=== PATIENT | male | born 1930 | race Caucasian/White ===

== ENCOUNTER 2017-01-21 13:49 | Observation (INO) | payer MEDICARE, OTHER ==
[~2017-01-21] VITALS: Ht 182.9 cm; Wt 83.8 kg
[~2017-01-21 13:49] MED LIST: ALBU8.5H8; ASPI-515 PO; ATOR40TA78 PO; CARB1TAB PO; CARB1TAB44 PO; CITA40TA5 PO; CLOP75TA PO; DOCU50CA PO; DROX100C PO; ESZO2TAB22 PO; FLUT1DIS; FLUT1DIS5 IH; FOLI-17 PO; GUAI600T80 PO; LORA2TAB99 PO; MAGN400T7 PO; MIDO10TA PO; MULT-115 PO; NITR0.4T28 SL; OMEG500C PO; PANT40GR PO; PRAV80TA2 PO; PRED10TA PO; PRED20TA PO; PYRI60TA PO; RANO500T2 PO; ROSU40TA PO; THIA100T10 PO; TIOT18CA; VITAMIN B COMPLEX; WELLBUTRIN
[2017-01-21] MEDS ORDERED: BUDE10.2 INH (14:17)
[2017-01-21] MEDS ORDERED: SODIUM CHLORIDE 0.9% 1,000ML IVBOLUS ONE (14:30)
[2017-01-21] MEDS ORDERED: ONDANSETRON 2MG/ML, 2ML IVPush ONE (14:30)
[2017-01-21] MEDS ORDERED: SODIUM CHLORIDE FLUSH 10ML SYR IVF ONE (14:30)
[2017-01-21 14:39] LABS: HEMATOCRIT 41.5 % (39.2-51.8); HEMOGLOBIN 13.9 g/dL (13.7-18.0); WHITE BLOOD COUNT 7.3 x10^3/uL (3.4-10)
[2017-01-21 14:51] LABS: ASPARTATE AMINO TRANSFERASE 8 U/L (15-37); BLOOD UREA NITROGEN 13 mg/dL (7-18)
[2017-01-21] MEDS ORDERED: ONDANSETRON 2MG/ML, 2ML ONE (15:08)
[2017-01-21] MEDS ORDERED: HYDROmorphone 1 MG/ML, 1ML IM PRN (17:00)
[2017-01-21] MEDS ORDERED: HYDROmorphone 1 MG/ML, 1ML ONE (17:04)
[2017-01-21] MEDS ORDERED: HYDROmorphone 1 MG/ML, 1ML IVPush PRN (17:30)
[2017-01-21] MEDS ORDERED: POTASSIUM CHLORIDE 20 MEQ, MAGNESIUM SULFATE 2 GM, THIAMINE 100 MG, MVI ADULT 10 ML, FO... IV SCH (17:44)
[2017-01-21] MEDS ORDERED: PINK LADY ENEMA 1,000 ML PR ONE (18:00)
[2017-01-21] MEDS ORDERED: ONDANSETRON ODT 4 MG PO PRN (18:00)
[2017-01-21] MEDS ORDERED: NITROGLYCERIN 0.4 MG BOTTLE (25 TABS) SL SCH (18:00)
[2017-01-21] MEDS ORDERED: ONDANSETRON 2MG/ML, 2ML IVPush PRN (18:00)
[2017-01-21] MEDS ORDERED: DOCUSATE 100 MG CAPSULE PO PRN (18:00)
[2017-01-21] MEDS ORDERED: LABETALOL 5MG/ML, 20ML IVPush PRN (18:00)
[2017-01-21] MEDS ORDERED: ENOXAPARIN 40 MG/0.4 ML SQ SCH (18:00)
[2017-01-21] MEDS ORDERED: TRAZODONE 50MG TABLET PO PRN (18:00)
[2017-01-21] MEDS ORDERED: ACETAMINOPHEN 325 MG TABLET PO PRN (18:00)
[2017-01-21] MEDS ORDERED: hydrALAzine 20 MG/ML, 1ML IVPush PRN (18:00)
[2017-01-21] MEDS ORDERED: BISACODYL 10 MG SUPP PR PRN (18:00)
[2017-01-21] MEDS ORDERED: POLYETHYLENE GLYCOL 17 GM PACKET PO PRN (18:00)
[2017-01-21 18:37] VITALS: BP 119/65
[2017-01-21] MEDS ORDERED: POTASSIUM CHLORIDE 20 MEQ, MAGNESIUM SULFATE 2 GM, THIAMINE 100 MG, MVI ADULT 10 ML in ... IV SCH (19:00)
[2017-01-21] MEDS ORDERED: FOLIC ACID 1 MG TABLET PO SCH (19:00)
[2017-01-21] MEDS: CARBIDOPA/LEVODOPA CR 50 MG/200 MG TABLET PO SCH ×2 (19:49→23:20)
[2017-01-21] MEDS: MIDODRINE 5 MG TABLET PO SCH ×2 (19:49→21:00)
[2017-01-21] MEDS ORDERED: (Rosuvastatin Calcium** (Crestor**) 40 MG) PO SCH (21:00)
[2017-01-21] MEDS: FAMOTIDINE 20 MG TABLET PO SCH (21:55)
[2017-01-21] MEDS: LACTULOSE 10 GM/15 ML UDC PO SCH (21:55)
[2017-01-21] MEDS: RANOLAZINE 500 MG TAB.ER.12H PO SCH (21:55)
[2017-01-22 02:40] VITALS: BP 150/71
[2017-01-22 06:04] LABS: HEMATOCRIT 36.2 % (39.2-51.8); WHITE BLOOD COUNT 5.4 x10^3/uL (3.4-10)
[2017-01-22 06:06] LABS: BLOOD UREA NITROGEN 14 mg/dL (7-18)
[2017-01-22 07:52] VITALS: BP 116/70
[2017-01-22] MEDS ORDERED: (Budesonide/Formoterol Fumarate (Symbicort 160-4.5 Mcg Inhaler INH SCH (09:00)
[2017-01-22] MEDS ORDERED: ASPIRIN 81 MG TABLET EC PO SCH (09:00)
[2017-01-22] MEDS ORDERED: SENNA/DOCUSATE TABLET PO SCH (09:00)
[2017-01-22] MEDS ORDERED: DOCUSATE 50 MG/5 ML, 10ML UDC PO SCH (09:00)
[2017-01-22] MEDS: FAMOTIDINE 20 MG TABLET PO SCH (10:12)
[2017-01-22] MEDS: CARBIDOPA/LEVODOPA CR 50 MG/200 MG TABLET PO SCH (10:12)
[2017-01-22] MEDS: LACTULOSE 10 GM/15 ML UDC PO SCH (10:12)
[2017-01-22] MEDS: RANOLAZINE 500 MG TAB.ER.12H PO SCH (10:12)
[2017-01-22] MEDS: MIDODRINE 5 MG TABLET PO SCH (10:13)
[2017-01-22] MEDS ORDERED: FLU VACC QS2017-18 (36MOS+) UP/PF 0.5 ML IM-VACC ONE (13:00)
[2017-01-22 13:19] VITALS: BP 150/67
== END 2017-01-22 14:00 | disposition home or self-care (01) ==
LOC: ED 17:20 → EDIP 17:21 → ED 17:54 → 3NE 18:10
PROVIDERS: ADMIT Internal Medicine; ATTEND Internal Medicine
DX: K59.00 Constipation, unspecified (principal); I25.810 Atherosclerosis of coronary artery bypass graft(s) without angina pectoris; K21.9 Gastro-esophageal reflux disease without esophagitis; F32.9 Major depressive disorder, single episode, unspecified; J44.9 Chronic obstructive pulmonary disease, unspecified; I95.9 Hypotension, unspecified; E78.5 Hyperlipidemia, unspecified; G20 Parkinson's disease; E78.00 Pure hypercholesterolemia, unspecified; I25.2 Old myocardial infarction; I48.0 Paroxysmal atrial fibrillation; Z87.891 Personal history of nicotine dependence; Z86.73 Personal history of transient ischemic attack (TIA), and cerebral infarction without residual deficits; Z23 Encounter for immunization
CPT/HCPCS: 36415; 73030; 74022; 80048; 80053; 81003; 83605; 83690; 84439; 84443; 85025; 90686; 96361; 96365; 96366; 96372; 96375; 97163; 99285; G0008; G0378; G8978; G8979; G8980; J1170; J1650; J2405; J3411; J3475; J3480; J7030; 96374; J7042

== ENCOUNTER 2017-03-31 02:45 | Inpatient (IN) | payer MEDICARE, OTHER ==
[~2017-03-31] VITALS: Ht 182.9 cm; Wt 73.3 kg
[~2017-03-31 02:45] MED LIST changes: +BUDE10.2 INH
[2017-03-31] MEDS ORDERED: SODIUM CHLORIDE FLUSH 10ML SYR IVF ONE (03:00)
[2017-03-31 03:16] LABS: BASOPHILS # (AUTO) 0.08 x10^3/uL (0-0.1); BASOPHILS % (AUTO) 1 % (0-1); EOSINOPHILS # (AUTO) 0.13 x10^3/uL (0-0.4); EOSINOPHILS % (AUTO) 2 % (1-7); LYMPHOCYTES # (AUTO) 1.56 x10^3/uL (1-3.4); LYMPHOCYTES % (AUTO) 23 % (22-44); MD NO; MEAN CORPUSCULAR HGB CONC 33.2 g/dL (33.2-36.2); MEAN CORPUSCULAR VOLUME 93.4 fL (81-97); MEAN PLATELET VOLUME 7.4 fL (7.4-10.4); MONOCYTES # (AUTO) 0.77 x10^3/uL (0.2-0.8); MONOCYTES % (AUTO) 11 % (2-9); NEUTROPHILS # (AUTO) 4.22 x10^3/uL (1.8-6.8); NEUTROPHILS % (AUTO) 62 % (42-75); PLATELET COUNT 432 x10^3/uL (130-400); RED BLOOD COUNT 4.02 x10^6/uL (4.38-5.82); RED CELL DISTRIBUTION WIDTH 14.5 % (9.4-14.8)
[2017-03-31 03:25] LABS: ALANINE AMINOTRANSFERASE 12 U/L (12-78); ANION GAP 4 mmol/L (5-15); CALCIUM 8.4 mg/dL (8.5-10.1); CHLORIDE 102 mmol/L (98-107)
[2017-03-31 03:30] LABS: ALKALINE PHOSPHATASE 80 U/L (45-117); BILIRUBIN,TOTAL 0.4 mg/dL (0.2-1.0); TOTAL PROTEIN 6.7 g/dL (6.4-8.2); TROPONIN I < 0.015 ng/mL (0.000-0.045)
[2017-03-31] MEDS ORDERED: FOLI-17 PO (03:37)
[2017-03-31] MEDS ORDERED: CYAN10005 PO (03:38)
[2017-03-31 05:03] VITALS: BP 144/74
[2017-03-31] MEDS ORDERED: ACETAMINOPHEN 325 MG TABLET PO PRN (05:30)
[2017-03-31] MEDS ORDERED: ONDANSETRON 2MG/ML, 2ML IVPush PRN (05:30)
[2017-03-31 06:30] VITALS: BP 132/59
[2017-03-31 06:30] LABS: THYROID STIMULATING HORMONE 1.62 mIU/L (0.358-3.740)
[2017-03-31 07:27] LABS: TROPONIN I < 0.015 ng/mL (0.000-0.045)
[2017-03-31] MEDS: DOCUSATE 50 MG/5 ML, 10ML UDC PO SCH ×2 (08:00→12:41)
[2017-03-31] MEDS: CARBIDOPA/LEVODOPA CR 50 MG/200 MG TABLET PO SCH ×3 (09:00→21:59)
[2017-03-31 11:39] LABS: TROPONIN I < 0.015 ng/mL (0.000-0.045)
[2017-03-31] MEDS: ENOXAPARIN 40 MG/0.4 ML SQ SCH (12:28)
[2017-03-31] MEDS: MIDODRINE 5 MG TABLET PO SCH ×3 (12:28→21:59)
[2017-03-31] MEDS: ASPIRIN 81 MG TABLET EC PO SCH (12:28)
[2017-03-31] MEDS: RANOLAZINE 500 MG TAB.ER.12H PO SCH ×2 (12:28→21:59)
[2017-03-31] MEDS: SODIUM CHLORIDE 0.9% 1,000 ML IV SCH (12:41)
[2017-03-31 12:45] VITALS: BP 104/50
[2017-03-31 19:28] VITALS: BP 136/67
[2017-03-31] MEDS ORDERED: DIPHENHYDRAMINE 25 MG CAPSULE PO PRN (22:00)
[2017-04-01] MEDS: SODIUM CHLORIDE 0.9% 1,000 ML IV SCH ×2 (00:43→11:24)
[2017-04-01 00:45] VITALS: BP 116/67
[2017-04-01] MEDS: DOCUSATE 50 MG/5 ML, 10ML UDC PO SCH (08:02)
[2017-04-01 08:23] VITALS: BP 120/64
[2017-04-01] MEDS: CARBIDOPA/LEVODOPA CR 50 MG/200 MG TABLET PO SCH ×2 (08:23→16:00)
[2017-04-01] MEDS: MIDODRINE 5 MG TABLET PO SCH ×2 (08:24→16:00)
[2017-04-01] MEDS: RANOLAZINE 500 MG TAB.ER.12H PO SCH (08:24)
[2017-04-01] MEDS: ASPIRIN 81 MG TABLET EC PO SCH (08:24)
[2017-04-01] MEDS ORDERED: ALBUTEROL/IPRATROPIUM 2.5MG/0.5MG, 3 ML ONE (09:13)
[2017-04-01] MEDS: ALBUTEROL/IPRATROPIUM 2.5MG/0.5MG, 3 ML NPPB SCH ×2 (10:04→14:53)
[2017-04-01] MEDS: ENOXAPARIN 40 MG/0.4 ML SQ SCH (11:24)
[2017-04-01] MEDS ORDERED: LISINOPRIL 5 MG TABLET PO SCH (12:30)
[2017-04-01 12:41] LABS: BASOPHILS # (AUTO) 0.01 x10^3/uL (0-0.1); BASOPHILS % (AUTO) 0 % (0-1); EOSINOPHILS # (AUTO) 0.11 x10^3/uL (0-0.4); EOSINOPHILS % (AUTO) 2 % (1-7); LYMPHOCYTES # (AUTO) 1.01 x10^3/uL (1-3.4); LYMPHOCYTES % (AUTO) 16 % (22-44); MD NO; MEAN CORPUSCULAR HGB CONC 33.4 g/dL (33.2-36.2); MEAN CORPUSCULAR VOLUME 92.8 fL (81-97); MEAN PLATELET VOLUME 7.2 fL (7.4-10.4); MONOCYTES # (AUTO) 0.57 x10^3/uL (0.2-0.8); MONOCYTES % (AUTO) 9 % (2-9); NEUTROPHILS # (AUTO) 4.69 x10^3/uL (1.8-6.8); NEUTROPHILS % (AUTO) 73 % (42-75); PLATELET COUNT 327 x10^3/uL (130-400); RED BLOOD COUNT 3.78 x10^6/uL (4.38-5.82); RED CELL DISTRIBUTION WIDTH 14.7 % (9.4-14.8)
[2017-04-01 12:50] LABS: ANION GAP 4 mmol/L (5-15); CHLORIDE 102 mmol/L (98-107)
[2017-04-01 15:02] VITALS: BP 118/69
[2017-04-01] MEDS ORDERED: CARV3.1212 PO (15:02)
[2017-04-01] MEDS ORDERED: LISI5TAB7 PO (15:02)
[2017-04-01] MEDS ORDERED: CARVEDILOL 3.125 MG TABLET PO SCH (18:00)
== END 2017-04-01 16:38 | disposition home or self-care (01) | DRG 303 ==
LOC: ED 03:07 → EDIP 03:39 → 5SO 04:53 → DCLOUNGE 04-01 16:33
PROVIDERS: ADMIT Internal Medicine; ATTEND Internal Medicine
DX: I25.119 Atherosclerotic heart disease of native coronary artery with unspecified angina pectoris (principal); E44.0 Moderate protein-calorie malnutrition; G20 Parkinson's disease; I11.0 Hypertensive heart disease with heart failure; I48.2 Chronic atrial fibrillation; I48.92 Unspecified atrial flutter; I48.0 Paroxysmal atrial fibrillation; I50.22 Chronic systolic (congestive) heart failure; J43.9 Emphysema, unspecified; Q21.1 Atrial septal defect; I50.20 Unspecified systolic (congestive) heart failure; E78.00 Pure hypercholesterolemia, unspecified; I25.2 Old myocardial infarction; R07.89 Other chest pain; I25.10 Atherosclerotic heart disease of native coronary artery without angina pectoris; Z68.21 Body mass index [BMI] 21.0-21.9, adult; I25.5 Ischemic cardiomyopathy; I34.0 Nonrheumatic mitral (valve) insufficiency; I35.1 Nonrheumatic aortic (valve) insufficiency; K21.9 Gastro-esophageal reflux disease without esophagitis; Z77.090 Contact with and (suspected) exposure to asbestos; Z86.61 Personal history of infections of the central nervous system; Z86.711 Personal history of pulmonary embolism; Z86.73 Personal history of transient ischemic attack (TIA), and cerebral infarction without residual deficits; Z95.1 Presence of aortocoronary bypass graft; Z95.5 Presence of coronary angioplasty implant and graft; Z88.6 Allergy status to analgesic agent
CPT/HCPCS: 36415; 71045; 80048; 80053; 83735; 84443; 84484; 85025; 93005; 94640; 99285; C8929; J1650; J2405; J7620; J7030; Q0163

== ENCOUNTER 2017-05-03 17:47 | Emergency (ER) | payer MEDICARE, OTHER ==
[~2017-05-03 17:47] MED LIST changes: +CARV3.1212 PO; +CYAN10005 PO; +LISI5TAB7 PO
[2017-05-03] MEDS ORDERED: SENN1TAB7 PO (17:59)
[2017-05-03] MEDS ORDERED: PANT40TA5 PO (17:59)
[2017-05-03] MEDS ORDERED: CARB1TAB43 PO (17:59)
[2017-05-03] MEDS ORDERED: ALBU1.25 NEB (18:07)
[2017-05-03] MEDS ORDERED: ASCO100T5 PO (18:07)
[2017-05-03] MEDS ORDERED: LIDOCAINE PATCH SUBD (18:07)
[2017-05-03] MEDS ORDERED: RANO500T2 PO (18:07)
[2017-05-03] MEDS ORDERED: MORPHINE SULFATE 4 MG/ML, 1ML ONE ×2 (18:17→20:02)
[2017-05-03] MEDS ORDERED: ONDANSETRON 2MG/ML, 2ML ONE (18:18)
== END 2017-05-03 18:18 ==
LOC: ED 18:12
DX: S22.41XA Multiple fractures of ribs, right side, initial encounter for closed fracture (principal); I25.10 Atherosclerotic heart disease of native coronary artery without angina pectoris; E78.5 Hyperlipidemia, unspecified; I48.91 Unspecified atrial fibrillation; G20 Parkinson's disease; J44.9 Chronic obstructive pulmonary disease, unspecified; K21.9 Gastro-esophageal reflux disease without esophagitis; I25.2 Old myocardial infarction; I11.0 Hypertensive heart disease with heart failure; Z87.891 Personal history of nicotine dependence; W19.XXXA Unspecified fall, initial encounter; Y93.89 Activity, other specified; Y92.89 Other specified places as the place of occurrence of the external cause; Y99.8 Other external cause status
CPT/HCPCS: 99283